=== PATIENT | male | born 1950 | race Caucasian/White ===

== ENCOUNTER 2018-09-02 05:01 | Inpatient (IN) | payer MEDICARE, OTHER ==
[2018-08-30 13:29] LABS: BASOPHILS % (AUTO) 0.4 % (0-1); EOSINOPHILS # (AUTO) 0.1 X10'3 (0-0.9); EOSINOPHILS % (AUTO) 2.6 % (0-6); LYMPHOCYTES # (AUTO) 1.2 X10'3 (1.1-4.8); LYMPHOCYTES % (AUTO) 26.8 % (21-51); MEAN CORPUSCULAR HEMOGLOBIN 31.4 PG (27.0-31.0); MEAN CORPUSCULAR HGB CONC 33.9 % (33.0-36.5); MEAN CORPUSCULAR VOLUME 92.7 FL (78-98); MEAN PLATELET VOLUME 7.3 FL (7.4-10.4); MONOCYTES # (AUTO) 0.3 X10'3 (0-0.9); MONOCYTES % (AUTO) 6.1 % (2-12); NEUTROPHILS % (AUTO) 64.1 % (42-75); PRE OP HEMATOCRIT 39.8 % (42.0-52.0); PRE OP HEMOGLOBIN 13.5 g/dL (14.0-17.9); PRE OP PLATELET COUNT 156 X10'3 (140-440); RED CELL DISTRIBUTION WIDTH 13.4 % (11.5-14.5)
[2018-08-30 13:35] LABS: CLARITY,URINE CLEAR (Clear); COLOR,URINE YELLOW (Yellow); GLUCOSE, URINE NEGATIVE (Neg); KETONES,URINE NEGATIVE (Neg); NITRITES, URINE NEGATIVE (Neg); OCCULT BLOOD,URINE NEGATIVE (Neg); PROTEIN,URINE NEGATIVE (Neg); UA COLLECTION TYPE CLN CATCH MIDSTREAM
[2018-08-30 13:36] LABS: LEUKOCYTE ESTERASE ,URINE NEGATIVE (Neg); UROBILINOGEN,URINE 0.2 E.U/dL (0.2-1.0)
[2018-08-30 13:40] LABS: HEMOGLOBIN A1C 7.7 % (4.5-6.2)
[2018-08-30 13:44] LABS: ALBUMIN 3.3 G/DL (3.4-5.0); ALKALINE PHOSPHATASE 74 IU/L (46-116); BLOOD UREA NITROGEN 17 MG/DL (7-18); BUN/CREATININE RATIO 14.3 (5.4-32.0); CALCIUM 8.6 MG/DL (8.5-10.1); CHLORIDE 105 MMOL/L (99-107); CREATININE 1.19 MG/DL (0.60-1.10); PRE OP ALT 35 U/L (30-65); PRE OP ANION GAP 10 (8-16); PRE OP AST 16 U/L (10-37); PRE OP BILIRUB, TOTAL 0.3 MG/DL (0.0-1.0); PRE OP GLUCOSE 183 MG/DL (70-104); PRE OP POTASSIUM 4.1 MMOL/L (3.4-5.1); PRE OP SODIUM 141 MMOL/L (135-145); TOTAL CARBON DIOXIDE 26.1 MMOL/L (24-32); TOTAL PROTEIN 6.7 G/DL (6.4-8.2); eGFR 60 ML/MIN
[2018-09-02] VITALS (17 sets, daily range): BP systolic 100–149; BP diastolic 44–67
[~2018-09-02] VITALS: Ht 180.3 cm; Wt 129.0 kg
[~2018-09-02 05:01] MED LIST: ASPI81TA52 PO; ATOR80TA PO; CETI10TA18 PO; CLOP75TA15 PO; GLIP10TA11 PO; LISI10TA4 PO; METF500T PO; dextrose 50%-water 50ml dispensing syringe IV PRN; mupirocin 2% nasal ointment 1gm UD NS SCH; ringers solution, lacted 1,000 ML IV SCH
[2018-09-02] MEDS ORDERED: ceFAZolin inj. 3,000 MG in normal saline 100ml IV soln 100 ML IV ONE (05:30)
[2018-09-02] MEDS ORDERED: famotidine 20mg tablet PO ONE (05:30)
[2018-09-02] MEDS ORDERED: metoprolol tartrate 12.5mg (1/2 tablet) PO ONE (05:30)
[2018-09-02] MEDS ORDERED: vancomycin inj 1,500 MG in normal saline 300ml IV soln IV ONE (05:30)
[2018-09-02] MEDS ORDERED: albuterol 2.5 MG/3 ML nebule NEB ONE (05:30)
[2018-09-02] MEDS ORDERED: LIDOcaine 1% (10mg/ml) 2ml vial ONE (05:48)
[2018-09-02] MEDS ORDERED: LORazepam 2 mg/ml vial IV PRN (06:10)
[2018-09-02] MEDS ORDERED: isoflurane 100ml inhalation liquid IH ONE (06:50)
[2018-09-02] MEDS ORDERED: aminocaproic acid 250 MG/1 ML inj. ONE ×2 (06:50→09:00)
[2018-09-02] MEDS ORDERED: INSULIN R 100 UNIT in NS 100ML (1 UNIT/1 ML) BAG IV ONE (06:50)
[2018-09-02] MEDS ORDERED: protamine sulf. 10mg/ml inj. IV ONE (06:50)
[2018-09-02] MEDS ORDERED: nitroGLYCERIN in D5W 50mg/250ml (Tridil) infusion IV ONE (06:50)
[2018-09-02] MEDS ORDERED: niCARDipine in NS 40mg/200ml (0.2mg/ml) IVPB IV ONE (06:50)
[2018-09-02] MEDS ORDERED: LORazepam 2 mg/ml vial ONE (06:57)
[2018-09-02] MEDS ORDERED: SUFENTANIL CITRATE 50 MCG/ML 2ml ampule IV ONE (06:57)
[2018-09-02] MEDS ORDERED: pancuronium br 1mg/ml inj IV ONE (07:00)
[2018-09-02] MEDS ORDERED: papaverine 30 mg/ml 2ml inj. IA ONE (07:00)
[2018-09-02] MEDS ORDERED: propofol inj 20 ML IV ONE (07:00)
[2018-09-02] MEDS ORDERED: rocuronium 10mg/ml inj IV ONE (07:00)
[2018-09-02] MEDS ORDERED: LIDOcaine 1%/PF 5ML 10 MG/ML VIAL ONE (07:00)
[2018-09-02] MEDS ORDERED: heparin 10,000 units/1 ML INJ IR ONE (07:00)
[2018-09-02] MEDS ORDERED: ipratropium/albuterol 3ml nebule IH PRN (08:20)
[2018-09-02 08:31] LABS: ABG BASE EXCESS -2.6 mmol/L (-2.0-3.0); ABG HCO3 24.1 mmol/L (22.0-26.0); ABG PCO2 48.8 mmHg (35.0-45.0); ABG PH 7.311 (7.350-7.450); ABG PO2 88.5 mmHg (60.0-100.0); CL (ABG) 107 mmol/L (99-107); GLUCOSE (ABG) 123 mg/dl (70-105); IONIZED CA (ABG) 1.19 mmol/L (1.03-1.32); K (ABG) 3.6 mmol/L (3.3-5.1); NA (ABG) 138 mmol/L (135-145)
[2018-09-02 08:50] LABS: ACT @ 1.70 U 323 SEC (193-297); ACT @ 2.84 U 486 SEC (260-420); BASELINE ACT 157 SEC (101-148)
[2018-09-02] MEDS ORDERED: magnesium sulf 1 GM/2 ML ONE (09:00)
[2018-09-02] MEDS ORDERED: methylPREDNISolone sod succ 1000mg vial ONE (09:00)
[2018-09-02] MEDS ORDERED: papaverine 30 mg/ml 2ml inj. ONE (09:00)
[2018-09-02] MEDS ORDERED: calcium chloride 100 MG/1 ML inj IV ONE (09:00)
[2018-09-02] MEDS ORDERED: LIDOcaine 2% (20 mg/ml) 5ml cardiac syringe ONE (09:00)
[2018-09-02] MEDS ORDERED: phenylephrine 10mg/ml inj. ONE (09:00)
[2018-09-02] MEDS ORDERED: sodium bicarbonate (8.4%) 1 mEq/ml syringe ONE (09:00)
[2018-09-02] MEDS ORDERED: potassium Cl 2 mEq/ml inj IV ONE (09:00)
[2018-09-02] MEDS ORDERED: heparin 10,000 units/1 ML INJ ONE ×2 (09:00)
[2018-09-02] MEDS ORDERED: heparin 1,000 units/ml 10ml inj ONE (09:00)
[2018-09-02] MEDS ORDERED: albumin (human) 25% 100 ML IV solution IV ONE (09:00)
[2018-09-02 09:06] LABS: ABG BASE EXCESS -4.6 mmol/L (-2.0-3.0); ABG HCO3 20.7 mmol/L (22.0-26.0); ABG OXYGEN SATURATION 94.3 % (95-98); ABG PCO2 39.4 mmHg (35.0-45.0); ABG PH 7.339 (7.350-7.450); ABG PO2 74.4 mmHg (60.0-100.0); CL (ABG) 107 mmol/L (99-107); FCOHb 0.7 % (0.5-1.5); FMetHb 0.1 % (0.3-1.12); FO2Hb 93.5 % (94-100); GLUCOSE (ABG) 130 mg/dl (70-105); IONIZED CA (ABG) 1.16 mmol/L (1.03-1.32); K (ABG) 3.7 mmol/L (3.3-5.1); NA (ABG) 137 mmol/L (135-145); TOTAL HEMOGLOBIN 12.2 G/dl (14.0-18.0)
[2018-09-02 09:36] LABS: ABG BASE EXCESS 0.1 mmol/L (-2.0-3.0); ABG HCO3 25.4 mmol/L (22.0-26.0); ABG OXYGEN SATURATION 99.1 % (95-98); ABG PCO2 44.5 mmHg (35.0-45.0); ABG PH 7.375 (7.350-7.450); ABG PO2 350.4 mmHg (60.0-100.0); CL (ABG) 105 mmol/L (99-107); FCOHb 0.3 % (0.5-1.5); FMetHb 0.3 % (0.3-1.12); FO2Hb 98.5 % (94-100); GLUCOSE (ABG) 137 mg/dl (70-105); IONIZED CA (ABG) 1.08 mmol/L (1.03-1.32); NA (ABG) 136 mmol/L (135-145); TOTAL HEMOGLOBIN 9.9 G/dl (14.0-18.0)
[2018-09-02 09:55] LABS: ABG HCO3 VENOUS 23.8 mmol/L; ABG PCO2 VENOUS 45.1 mmHg; ABG PO2 VENOUS 50.6 mmHg; CL (ABG) 105 mmol/L (99-107); FCOHb VENOUS 0.1 %; FHHb VENOUS 15.8 %; FO2Hb VENOUS 84.1 %; GLUCOSE (ABG) 140 mg/dl (70-105); K (ABG) 3.6 mmol/L (3.3-5.1); NA (ABG) 137 mmol/L (135-145); TOTAL HEMOGLOBIN 10.1 G/dl (14.0-18.0)
[2018-09-02 10:35] LABS: ABG BASE EXCESS -2.5 mmol/L (-2.0-3.0); ABG HCO3 23.1 mmol/L (22.0-26.0); ABG OXYGEN SATURATION 99.2 % (95-98); ABG PH 7.348 (7.350-7.450); ABG PO2 319.2 mmHg (60.0-100.0); CL (ABG) 108 mmol/L (99-107); FCOHb 0.3 % (0.5-1.5); FMetHb 0.2 % (0.3-1.12); FO2Hb 98.7 % (94-100); GLUCOSE (ABG) 147 mg/dl (70-105); K (ABG) 4.6 mmol/L (3.3-5.1); NA (ABG) 137 mmol/L (135-145); TOTAL HEMOGLOBIN 10.2 G/dl (14.0-18.0)
[2018-09-02 11:36] LABS: ABG BASE EXCESS -3.7 mmol/L (-2.0-3.0); ABG HCO3 21.1 mmol/L (22.0-26.0); ABG OXYGEN SATURATION 96.4 % (95-98); ABG PCO2 37.4 mmHg (35.0-45.0); ABG PO2 91.8 mmHg (60.0-100.0); CL (ABG) 107 mmol/L (99-107); FCOHb 0.3 % (0.5-1.5); FMetHb 0.1 % (0.3-1.12); GLUCOSE (ABG) 128 mg/dl (70-105); IONIZED CA (ABG) 1.23 mmol/L (1.03-1.32); K (ABG) 3.7 mmol/L (3.3-5.1); NA (ABG) 137 mmol/L (135-145); TOTAL HEMOGLOBIN 10.6 G/dl (14.0-18.0)
[2018-09-02] MEDS: sodium chloride 0.45% 1,000 ML IV SCH (12:07)
[2018-09-02] MEDS ORDERED: DOPamine 400mg/D5W 250ml 250 ML IV PRN (12:07)
[2018-09-02] MEDS ORDERED: nitroGLYCERIN-Tridil 50MG/D5W 250 ML IV PRN (12:07)
[2018-09-02] MEDS ORDERED: niCARDipine-NS 40mg/200ml IVPB 200 ML IV PRN (12:07)
[2018-09-02] MEDS ORDERED: normal saline 250ml IV soln 250 ML IV PRN (12:10)
[2018-09-02] MEDS ORDERED: HYDROcodone/acetaminophen 10/325mg tab PO PRN (12:10)
[2018-09-02] MEDS ORDERED: albumin (Human) 5% 250ml 250 ML IV PRN (12:10)
[2018-09-02] MEDS ORDERED: acetaminophen 325mg tablet PO PRN (12:10)
[2018-09-02] MEDS ORDERED: magnesium 4gm in 100ml NS 100 ML IV PRN (12:10)
[2018-09-02] MEDS ORDERED: sodium phosphate inj. 15 MMOL in dextrose 5%-water 150 ML IV PRN (12:10)
[2018-09-02] MEDS ORDERED: sodium phosphate inj. 30 MMOL in dextrose 5%-water 250 ML IV PRN (12:10)
[2018-09-02] MEDS ORDERED: ondansetron/PF 4mg/2ml inj IV PRN (12:10)
[2018-09-02] MEDS ORDERED: morphine 4 MG/ML inj SYRINge IV PRN (12:10)
[2018-09-02] MEDS ORDERED: Neutra Phos packet PO PRN (12:10)
[2018-09-02] MEDS ORDERED: metoclopramide 5 mg/ml inj IV PRN (12:10)
[2018-09-02] MEDS ORDERED: dextrose 50%-water 50ml dispensing syringe IV PRN (12:10)
[2018-09-02] MEDS ORDERED: potassium Cl 20mEq/100mL bag 100 ML IV PRN ×2 (12:10)
[2018-09-02] MEDS ORDERED: magnesium hydroxide 30ml (MOM) UD suspension PO PRN (12:10)
[2018-09-02] MEDS ORDERED: insulin regular, human inj. 100 UNITS in normal saline 100ml IV soln 100 ML IV SCH ×2 (12:10)
[2018-09-02] MEDS ORDERED: pantoprazole 40 MG vial IV ONE (12:10)
[2018-09-02] MEDS: morphine 4 MG/ML inj SYRINge IV PRN ×2 (12:30→22:04)
[2018-09-02 12:36] LABS: ABG BASE EXCESS -1.9 mmol/L (-2.0-3.0); ABG HCO3 22.8 mmol/L (22.0-26.0); ABG OXYGEN SATURATION 97.2 % (95-98); ABG PCO2 (T) 37.3 mmHg (35.0-48.0); ABG PO2 (T) 96.1 mmHg (83-108); FCOHb 0.3 % (0.5-1.5); FMetHb 0.2 % (0.3-1.12); FO2Hb 96.7 % (94-100); MINUTE VOLUME 11 L/min; PATIENT TEMPERATURE 36.3; PEEP 10 cm H2O; RESPIRATORY RATE 14 b/min; RESPIRATORY RATE (OBSERVED) 14 b/min; TIDAL VOLUME 750 mL; TOTAL HEMOGLOBIN 12.1 G/dl (14.0-18.0)
[2018-09-02 12:36] LABS: ACTIVATED CLOTTING TIME 134 SEC (101-148)
[2018-09-02 12:38] LABS: BASOPHILS % (AUTO) 0.2 % (0-1); EOSINOPHILS # (AUTO) 0.1 X10'3 (0-0.9); EOSINOPHILS % (AUTO) 1.4 % (0-6); HEMATOCRIT 33.5 % (42.0-52.0); HEMOGLOBIN 11.3 g/dl (14.0-17.9); LYMPHOCYTES # (AUTO) 0.8 X10'3 (1.1-4.8); LYMPHOCYTES % (AUTO) 10.5 % (21-51); MEAN CORPUSCULAR HEMOGLOBIN 31.3 PG (27.0-31.0); MEAN CORPUSCULAR HGB CONC 33.7 % (33.0-36.5); MEAN CORPUSCULAR VOLUME 92.7 FL (78-98); MEAN PLATELET VOLUME 7.2 FL (7.4-10.4); MONOCYTES # (AUTO) 0.3 X10'3 (0-0.9); MONOCYTES % (AUTO) 3.8 % (2-12); NEUTROPHILS # (AUTO) 6.6 X10'3 (1.8-7.7); NEUTROPHILS % (AUTO) 84.1 % (42-75); PLATELET COUNT 115 X10'3 (140-440); RED BLOOD COUNT 3.61 X10'6 (4.70-6.10); RED CELL DISTRIBUTION WIDTH 13.5 % (11.5-14.5); WHITE BLOOD COUNT 7.9 X10'3 (4.5-11.0)
[2018-09-02 12:57] LABS: ALANINE AMINOTRANSFERASE 27 U/L (12-78); ALBUMIN 2.8 G/DL (3.4-5.0); ALBUMIN/GLOBULIN RATIO 1.1 (1.1-1.5); ALKALINE PHOSPHATASE 55 IU/L (46-116); ANION GAP 14 (8-16); ASPARTATE AMINO TRANSFERASE 32 U/L (10-37); BILIRUBIN,TOTAL 0.4 MG/DL (0.1-1.0); BLOOD UREA NITROGEN 19 MG/DL (7-18); BUN/CREATININE RATIO 13.7 (5.4-32.0); CALCIUM 8.9 MG/DL (8.5-10.1); CHLORIDE 108 MMOL/L (99-107); CREATININE 1.39 MG/DL (0.60-1.10); GLUCOSE 130 MG/DL (70-104); MAGNESIUM 2.7 MG/DL (1.5-2.4); PHOSPHORUS 2.1 MG/DL (2.3-4.5); POTASSIUM 3.7 MMOL/L (3.5-5.1); SODIUM 144 MMOL/L (135-145); TOTAL CARBON DIOXIDE 22.5 MMOL/L (24-32); TOTAL PROTEIN 5.4 G/DL (6.4-8.2); eGFR 51 ML/MIN
[2018-09-02] MEDS: insulin Lispro (HumaLOG) vial - multi-dose SQ SCH ×2 (13:00→18:00)
[2018-09-02] MEDS ORDERED: potassium phosphate inj 15 MMOL in normal saline 250ml IV soln 245 ML IV ONE (13:30)
[2018-09-02 13:38] LABS: INR 1.1 INR; PARTIAL THROMBOPLASTIN TIME 25 SECONDS (22-32); PROTHROMBIN TIME 11.3 SECONDS (9.0-12.0)
[2018-09-02] MEDS: potassium Cl 20mEq/100mL bag 100 ML IV PRN (13:41)
[2018-09-02 16:06] LABS: ABG BASE EXCESS -5.9 mmol/L (-2.0-3.0); ABG HCO3 20.6 mmol/L (22.0-26.0); ABG OXYGEN SATURATION 97.3 % (95-98); ABG PCO2 (T) 42.3 mmHg (35.0-48.0); ABG PH (T) 7.301 (7.350-7.450); FCOHb 0.1 % (0.5-1.5); FMetHb 0.2 % (0.3-1.12); MINUTE VOLUME 11 L/min; PATIENT TEMPERATURE 36.1; PEEP 5 cm H2O; TOTAL HEMOGLOBIN 12.9 G/dl (14.0-18.0)
[2018-09-02] MEDS: cefazolin/dext.iso 2gm/50ml 50 ML IV SCH (16:47)
[2018-09-02 17:15] LABS: ABG BASE EXCESS -4.5 mmol/L (-2.0-3.0); ABG HCO3 20.2 mmol/L (22.0-26.0); ABG PCO2 (T) 34.7 mmHg (35.0-48.0); ABG PH (T) 7.379 (7.350-7.450); ABG PO2 (T) 84.1 mmHg (83-108); FCOHb 0.3 % (0.5-1.5); FMetHb 0.1 % (0.3-1.12); FO2Hb 95.6 % (94-100); MINUTE VOLUME 12 L/min; PATIENT TEMPERATURE 36.1; PEEP 5 cm H2O; RESPIRATORY RATE (OBSERVED) 19 b/min; TOTAL HEMOGLOBIN 12.3 G/dl (14.0-18.0)
[2018-09-02 18:40] LABS: BASOPHILS % (AUTO) 0.1 % (0-1); EOSINOPHILS % (AUTO) 0.5 % (0-6); HEMATOCRIT 34.9 % (42.0-52.0); HEMOGLOBIN 11.5 g/dl (14.0-17.9); LYMPHOCYTES # (AUTO) 0.3 X10'3 (1.1-4.8); LYMPHOCYTES % (AUTO) 3.6 % (21-51); MEAN CORPUSCULAR HEMOGLOBIN 30.6 PG (27.0-31.0); MEAN CORPUSCULAR VOLUME 92.7 FL (78-98); MEAN PLATELET VOLUME 7.5 FL (7.4-10.4); MONOCYTES # (AUTO) 0.1 X10'3 (0-0.9); MONOCYTES % (AUTO) 1.3 % (2-12); NEUTROPHILS # (AUTO) 7.6 X10'3 (1.8-7.7); NEUTROPHILS % (AUTO) 94.5 % (42-75); PLATELET COUNT 114 X10'3 (140-440); RED BLOOD COUNT 3.76 X10'6 (4.70-6.10); RED CELL DISTRIBUTION WIDTH 13.8 % (11.5-14.5); WHITE BLOOD COUNT 8.1 X10'3 (4.5-11.0)
[2018-09-02 18:55] LABS: ALBUMIN 3.2 G/DL (3.4-5.0); ANION GAP 12 (8-16); BLOOD UREA NITROGEN 21 MG/DL (7-18); BUN/CREATININE RATIO 13.8 (5.4-32.0); CALCIUM 8.9 MG/DL (8.5-10.1); CHLORIDE 110 MMOL/L (99-107); CREATININE 1.52 MG/DL (0.60-1.10); GLUCOSE 143 MG/DL (70-104); MAGNESIUM 2.4 MG/DL (1.5-2.4); PHOSPHORUS 3.5 MG/DL (2.3-4.5); POTASSIUM 4.4 MMOL/L (3.5-5.1); SODIUM 144 MMOL/L (135-145); TOTAL CARBON DIOXIDE 22.1 MMOL/L (24-32); eGFR 46 ML/MIN
[2018-09-02] MEDS: vancomycin/NS 1 GM ADD-VANTAGE 250 ML IV SCH (19:48)
[2018-09-02] MEDS: docusate sod 100mg capsule PO SCH (19:59)
[2018-09-02] MEDS: insulin regular, human 100 UNIT in normal saline 100ml IV soln 99 ML IV SCH ×2 (20:23)
[2018-09-02] MEDS: mupirocin 2% ointment 22GM NS SCH (20:59)
[2018-09-03] VITALS (23 sets, daily range): BP systolic 102–158; BP diastolic 46–86
[2018-09-03] MEDS: potassium Cl 20mEq/100mL bag 100 ML IV PRN (00:05)
[2018-09-03] MEDS: cefazolin/dext.iso 2gm/50ml 50 ML IV SCH ×3 (01:04→16:07)
[2018-09-03 03:51] LABS: BASOPHILS % (AUTO) 0.1 % (0-1); EOSINOPHILS % (AUTO) 0.2 % (0-6); HEMATOCRIT 30.9 % (42.0-52.0); HEMOGLOBIN 10.4 g/dl (14.0-17.9); LYMPHOCYTES # (AUTO) 0.6 X10'3 (1.1-4.8); LYMPHOCYTES % (AUTO) 6.5 % (21-51); MEAN CORPUSCULAR HEMOGLOBIN 31.3 PG (27.0-31.0); MEAN CORPUSCULAR HGB CONC 33.6 % (33.0-36.5); MEAN CORPUSCULAR VOLUME 93.2 FL (78-98); MEAN PLATELET VOLUME 7.9 FL (7.4-10.4); MONOCYTES # (AUTO) 0.2 X10'3 (0-0.9); MONOCYTES % (AUTO) 2.2 % (2-12); NEUTROPHILS # (AUTO) 8.8 X10'3 (1.8-7.7); PLATELET COUNT 105 X10'3 (140-440); RED BLOOD COUNT 3.32 X10'6 (4.70-6.10); RED CELL DISTRIBUTION WIDTH 13.5 % (11.5-14.5); WHITE BLOOD COUNT 9.7 X10'3 (4.5-11.0)
[2018-09-03 04:08] LABS: PARTIAL THROMBOPLASTIN TIME 25 SECONDS (22-32)
[2018-09-03 04:09] LABS: ALANINE AMINOTRANSFERASE 26 U/L (12-78); ALBUMIN 2.9 G/DL (3.4-5.0); ALBUMIN/GLOBULIN RATIO 1.1 (1.1-1.5); ALKALINE PHOSPHATASE 50 IU/L (46-116); ANION GAP 10 (8-16); ASPARTATE AMINO TRANSFERASE 45 U/L (10-37); BILIRUBIN,TOTAL 0.3 MG/DL (0.1-1.0); BLOOD UREA NITROGEN 23 MG/DL (7-18); BUN/CREATININE RATIO 16.3 (5.4-32.0); CALCIUM 8.2 MG/DL (8.5-10.1); CHLORIDE 109 MMOL/L (99-107); CREATININE 1.41 MG/DL (0.60-1.10); GLUCOSE 170 MG/DL (70-104); MAGNESIUM 2.1 MG/DL (1.5-2.4); PHOSPHORUS 3.5 MG/DL (2.3-4.5); SODIUM 142 MMOL/L (135-145); TOTAL PROTEIN 5.5 G/DL (6.4-8.2); eGFR 50 ML/MIN
[2018-09-03] MEDS: insulin regular, human 100 UNIT in normal saline 100ml IV soln 99 ML IV SCH ×2 (04:22)
[2018-09-03] MEDS: magnesium 2GM in 50ml NS 50 ML IV PRN (04:22)
[2018-09-03] MEDS: HYDROcodone/acetaminophen 10/325mg tab PO PRN (04:31)
[2018-09-03] MEDS: cetirizine 10mg tablet PO SCH (07:58)
[2018-09-03] MEDS: docusate sod 100mg capsule PO SCH ×2 (07:59→19:50)
[2018-09-03] MEDS: atorvastatin 10mg tablet PO SCH (07:59)
[2018-09-03] MEDS: vancomycin/NS 1 GM ADD-VANTAGE 250 ML IV SCH ×2 (07:59→19:50)
[2018-09-03] MEDS: metoprolol tartrate 12.5mg (1/2 tablet) PO SCH ×2 (07:59→19:50)
[2018-09-03] MEDS: aspirin 325mg tablet, delayed-release (Ecotrin) PO SCH (08:00)
[2018-09-03] MEDS: mupirocin 2% ointment 22GM NS SCH ×2 (08:00→19:50)
[2018-09-03] MEDS: insulin Lispro (HumaLOG) vial - multi-dose SQ SCH ×4 (08:35→22:37)
[2018-09-03] MEDS: lisinopril 5mg tablet PO SCH (10:38)
[2018-09-03] MEDS ORDERED: dextrose ORAL solution 15 GM/59 ML bottle PO PRN ×2 (13:10)
[2018-09-03] MEDS ORDERED: glucagon, human recombinant 1mg kit SUBCUT PRN (13:10)
[2018-09-03] MEDS ORDERED: dextrose 50%-water 50ml dispensing syringe IV PRN ×2 (13:10)
[2018-09-03] MEDS ORDERED: MESSAGE TO PHARMACY PO ONE (13:10)
[2018-09-03] MEDS: insulin glargine (Lantus) pen - multi-dose SQ SCH (13:46)
[2018-09-04] VITALS (24 sets, daily range): BP systolic 105–156; BP diastolic 47–75
[2018-09-04] MEDS: cefazolin/dext.iso 2gm/50ml 50 ML IV SCH (00:18)
[2018-09-04 04:02] LABS: BASOPHILS % (AUTO) 0.4 % (0-1); EOSINOPHILS # (AUTO) 0.1 X10'3 (0-0.9); EOSINOPHILS % (AUTO) 0.7 % (0-6); HEMATOCRIT 32.1 % (42.0-52.0); HEMOGLOBIN 10.7 g/dl (14.0-17.9); LYMPHOCYTES % (AUTO) 9.5 % (21-51); MEAN CORPUSCULAR HEMOGLOBIN 31.3 PG (27.0-31.0); MEAN CORPUSCULAR HGB CONC 33.3 % (33.0-36.5); MEAN PLATELET VOLUME 8.3 FL (7.4-10.4); MONOCYTES # (AUTO) 0.6 X10'3 (0-0.9); MONOCYTES % (AUTO) 5.4 % (2-12); NEUTROPHILS # (AUTO) 8.9 X10'3 (1.8-7.7); PLATELET COUNT 110 X10'3 (140-440); RED BLOOD COUNT 3.42 X10'6 (4.70-6.10); RED CELL DISTRIBUTION WIDTH 13.9 % (11.5-14.5); WHITE BLOOD COUNT 10.6 X10'3 (4.5-11.0)
[2018-09-04 04:17] LABS: ALBUMIN 2.9 G/DL (3.4-5.0); ANION GAP 8 (8-16); BLOOD UREA NITROGEN 25 MG/DL (7-18); BUN/CREATININE RATIO 19.4 (5.4-32.0); CALCIUM 8.2 MG/DL (8.5-10.1); CHLORIDE 108 MMOL/L (99-107); CREATININE 1.29 MG/DL (0.60-1.10); GLUCOSE 222 MG/DL (70-104); MAGNESIUM 2.3 MG/DL (1.5-2.4); PHOSPHORUS 3.3 MG/DL (2.3-4.5); POTASSIUM 4.8 MMOL/L (3.5-5.1); SODIUM 141 MMOL/L (135-145); TOTAL CARBON DIOXIDE 25.5 MMOL/L (24-32); eGFR 55 ML/MIN
[2018-09-04] MEDS: magnesium 2GM in 50ml NS 50 ML IV PRN (05:12)
[2018-09-04] MEDS: HYDROcodone/acetaminophen 10/325mg tab PO PRN ×2 (05:34→09:40)
[2018-09-04] MEDS: lisinopril 5mg tablet PO SCH (07:09)
[2018-09-04] MEDS: aspirin 325mg tablet, delayed-release (Ecotrin) PO SCH (07:09)
[2018-09-04] MEDS: pantoprazole 40mg Tablet.DR PO SCH (07:09)
[2018-09-04] MEDS: cetirizine 10mg tablet PO SCH (07:09)
[2018-09-04] MEDS: docusate sod 100mg capsule PO SCH ×2 (07:09→19:50)
[2018-09-04] MEDS: atorvastatin 10mg tablet PO SCH (07:09)
[2018-09-04] MEDS: mupirocin 2% ointment 22GM NS SCH (07:10)
[2018-09-04] MEDS: insulin glargine (Lantus) pen - multi-dose SQ SCH (08:34)
[2018-09-04] MEDS: insulin Lispro (HumaLOG) vial - multi-dose SQ SCH ×3 (08:34→19:50)
[2018-09-04] MEDS: metoprolol tartrate 12.5mg (1/2 tablet) PO SCH ×2 (09:40→19:50)
[2018-09-04] MEDS: sodium chloride 0.45% 1,000 ML IV SCH (12:07)
[2018-09-04] MEDS ORDERED: insulin glargine (Lantus) pen - multi-dose SQ SCH (14:00)
[2018-09-04] MEDS: lisinopril 10 MG tablet PO SCH (21:04)
[2018-09-05] VITALS (18 sets, daily range): BP systolic 105–132; BP diastolic 45–74
[2018-09-05] MEDS: HYDROcodone/acetaminophen 10/325mg tab PO PRN ×2 (01:54→21:03)
[2018-09-05 04:44] LABS: BASOPHILS % (AUTO) 0.2 % (0-1); EOSINOPHILS # (AUTO) 0.1 X10'3 (0-0.9); HEMATOCRIT 31.8 % (42.0-52.0); HEMOGLOBIN 10.5 g/dl (14.0-17.9); LYMPHOCYTES # (AUTO) 1.5 X10'3 (1.1-4.8); LYMPHOCYTES % (AUTO) 19.1 % (21-51); MEAN CORPUSCULAR VOLUME 94.2 FL (78-98); MEAN PLATELET VOLUME 8.1 FL (7.4-10.4); MONOCYTES # (AUTO) 0.6 X10'3 (0-0.9); MONOCYTES % (AUTO) 7.3 % (2-12); NEUTROPHILS # (AUTO) 5.6 X10'3 (1.8-7.7); NEUTROPHILS % (AUTO) 72.4 % (42-75); PLATELET COUNT 112 X10'3 (140-440); RED BLOOD COUNT 3.38 X10'6 (4.70-6.10); RED CELL DISTRIBUTION WIDTH 14.5 % (11.5-14.5); WHITE BLOOD COUNT 7.7 X10'3 (4.5-11.0)
[2018-09-05 05:04] LABS: ALBUMIN 2.6 G/DL (3.4-5.0); ANION GAP 7 (8-16); BLOOD UREA NITROGEN 25 MG/DL (7-18); BUN/CREATININE RATIO 22.5 (5.4-32.0); CHLORIDE 109 MMOL/L (99-107); CREATININE 1.11 MG/DL (0.60-1.10); GLUCOSE 94 MG/DL (70-104); MAGNESIUM 2.2 MG/DL (1.5-2.4); PHOSPHORUS 3.6 MG/DL (2.3-4.5); SODIUM 143 MMOL/L (135-145); TOTAL CARBON DIOXIDE 27.1 MMOL/L (24-32); eGFR 65 ML/MIN
[2018-09-05] MEDS: magnesium 2GM in 50ml NS 50 ML IV PRN (05:30)
[2018-09-05] MEDS: docusate sod 100mg capsule PO SCH ×2 (08:26→20:00)
[2018-09-05] MEDS: pantoprazole 40mg Tablet.DR PO SCH (08:26)
[2018-09-05] MEDS: aspirin 81mg tablet.DR PO SCH (08:26)
[2018-09-05] MEDS: metoprolol tartrate 12.5mg (1/2 tablet) PO SCH ×2 (08:26→21:04)
[2018-09-05] MEDS: cetirizine 10mg tablet PO SCH (08:26)
[2018-09-05] MEDS: insulin glargine (Lantus) pen - multi-dose SQ SCH ×2 (08:30→21:56)
[2018-09-05] MEDS: insulin Lispro (HumaLOG) vial - multi-dose SQ SCH ×3 (08:34→19:42)
[2018-09-05] MEDS ORDERED: potassium Cl 20 mEq SR tablet PO PRN ×2 (08:40)
[2018-09-05] MEDS ORDERED: magnesium 4gm in 100ml NS 100 ML IV PRN (08:40)
[2018-09-05] MEDS ORDERED: magnesium Cl slow-release 64mg tablet PO PRN (08:40)
[2018-09-05] MEDS ORDERED: potassium Cl 40MEQ/NS 500ml 500 ML IV PRN ×2 (08:40)
[2018-09-05] MEDS: magnesium Cl slow-release 64mg tablet PO SCH (20:00)
[2018-09-05] MEDS: potassium Cl 20 mEq SR tablet PO SCH (20:00)
[2018-09-05] MEDS: lisinopril 10 MG tablet PO SCH (21:03)
[2018-09-06 02:00] VITALS: BP 94/55
[2018-09-06 06:21] LABS: BASOPHILS % (AUTO) 0.3 % (0-1); EOSINOPHILS % (AUTO) 0.7 % (0-6); HEMATOCRIT 32.9 % (42.0-52.0); HEMOGLOBIN 10.9 g/dl (14.0-17.9); LYMPHOCYTES # (AUTO) 1.4 X10'3 (1.1-4.8); LYMPHOCYTES % (AUTO) 21.8 % (21-51); MEAN CORPUSCULAR HEMOGLOBIN 31.3 PG (27.0-31.0); MEAN CORPUSCULAR HGB CONC 33.3 % (33.0-36.5); MEAN CORPUSCULAR VOLUME 94.1 FL (78-98); MEAN PLATELET VOLUME 7.4 FL (7.4-10.4); MONOCYTES # (AUTO) 0.3 X10'3 (0-0.9); MONOCYTES % (AUTO) 5.2 % (2-12); NEUTROPHILS # (AUTO) 4.8 X10'3 (1.8-7.7); PLATELET COUNT 133 X10'3 (140-440); RED CELL DISTRIBUTION WIDTH 14.2 % (11.5-14.5); WHITE BLOOD COUNT 6.6 X10'3 (4.5-11.0)
[2018-09-06 06:56] LABS: ALBUMIN 2.6 G/DL (3.4-5.0); ANION GAP 7 (8-16); BLOOD UREA NITROGEN 26 MG/DL (7-18); CHLORIDE 108 MMOL/L (99-107); GLUCOSE 87 MG/DL (70-104); MAGNESIUM 2.1 MG/DL (1.5-2.4); POTASSIUM 3.9 MMOL/L (3.5-5.1); SODIUM 143 MMOL/L (135-145); eGFR 55 ML/MIN
[2018-09-06 07:00] VITALS: BP 103/50
[2018-09-06] MEDS: pantoprazole 40mg Tablet.DR PO SCH (07:30)
[2018-09-06 08:00] VITALS: BP_SYST 103
[2018-09-06] MEDS ORDERED: K and/or MAG REPLACEMENT MC SCH (08:00)
[2018-09-06] MEDS: magnesium Cl slow-release 64mg tablet PO SCH (08:00)
[2018-09-06] MEDS: potassium Cl 20 mEq SR tablet PO SCH (08:00)
[2018-09-06] MEDS ORDERED: atorvastatin 20mg tablet PO SCH (08:00)
[2018-09-06] MEDS: metoprolol tartrate 12.5mg (1/2 tablet) PO SCH (08:00)
[2018-09-06] MEDS: aspirin 81mg tablet.DR PO SCH (09:26)
[2018-09-06] MEDS: HYDROcodone/acetaminophen 10/325mg tab PO PRN (09:27)
[2018-09-06] MEDS: cetirizine 10mg tablet PO SCH (09:27)
[2018-09-06] MEDS: docusate sod 100mg capsule PO SCH (09:28)
[2018-09-06] MEDS: insulin Lispro (HumaLOG) vial - multi-dose SQ SCH (13:51)
== END 2018-09-06 14:45 | DRG 236 ==
LOC: PAS IN 05:01 → EDSTATUS 07:30 → ICU 2S 12:06 → MED 3N 09-05 14:25
PROVIDERS: ADMIT Thoracic Surgery (Cardiothoracic Vascular Surgery); ATTEND Thoracic Surgery (Cardiothoracic Vascular Surgery)
PROC: 021309W Bypass Coronary Artery, Four or More Arteries from Aorta with Autologous Venous Tissue, Open Approach (ICD-10-PCS; 2018-09-02)
PROC: 06BQ4ZZ Excision of Left Saphenous Vein, Percutaneous Endoscopic Approach (ICD-10-PCS; 2018-09-02)
PROC: 5A1221Z Performance of Cardiac Output, Continuous (ICD-10-PCS; 2018-09-02)
PROC: B24BZZ4 Ultrasonography of Heart with Aorta, Transesophageal (ICD-10-PCS; 2018-09-02)
PROC: 02HV33Z Insertion of Infusion Device into Superior Vena Cava, Percutaneous Approach (ICD-10-PCS; 2018-09-02)
PROC: 4A133B3 Monitoring of Arterial Pressure, Pulmonary, Percutaneous Approach (ICD-10-PCS; 2018-09-02)
PROC: 02HP32Z Insertion of Monitoring Device into Pulmonary Trunk, Percutaneous Approach (ICD-10-PCS; 2018-09-02)
PROC: 5A09357 Assistance with Respiratory Ventilation, Less than 24 Consecutive Hours, Continuous Positive Airway Pressure (ICD-10-PCS; 2018-09-02)
PROC: B548ZZA Ultrasonography of Superior Vena Cava, Guidance (ICD-10-PCS; 2018-09-02)
PROC: 02100Z9 Bypass Coronary Artery, One Artery from Left Internal Mammary, Open Approach (ICD-10-PCS; principal; 2018-09-02 06:50)
PROC: 5A09357 Assistance with Respiratory Ventilation, Less than 24 Consecutive Hours, Continuous Positive Airway Pressure (ICD-10-PCS; 2018-09-03)
PROC: 5A09357 Assistance with Respiratory Ventilation, Less than 24 Consecutive Hours, Continuous Positive Airway Pressure (ICD-10-PCS; 2018-09-04)
PROC: 5A09357 Assistance with Respiratory Ventilation, Less than 24 Consecutive Hours, Continuous Positive Airway Pressure (ICD-10-PCS; 2018-09-05)
DX: I25.110 Atherosclerotic heart disease of native coronary artery with unstable angina pectoris (principal); I50.32 Chronic diastolic (congestive) heart failure; I13.0 Hypertensive heart and chronic kidney disease with heart failure and stage 1 through stage 4 chronic kidney disease, or unspecified chronic kidney disease; N18.3 Chronic kidney disease, stage 3 (moderate); E11.22 Type 2 diabetes mellitus with diabetic chronic kidney disease; E11.319 Type 2 diabetes mellitus with unspecified diabetic retinopathy without macular edema; G47.33 Obstructive sleep apnea (adult) (pediatric); J44.9 Chronic obstructive pulmonary disease, unspecified; E66.01 Morbid (severe) obesity due to excess calories; H53.2 Diplopia; R00.1 Bradycardia, unspecified; F12.90 Cannabis use, unspecified, uncomplicated; I25.2 Old myocardial infarction; Z98.41 Cataract extraction status, right eye; Z95.5 Presence of coronary angioplasty implant and graft; Z90.79 Acquired absence of other genital organ(s); Z79.4 Long term (current) use of insulin; Z79.84 Long term (current) use of oral hypoglycemic drugs; Z79.82 Long term (current) use of aspirin; Z79.01 Long term (current) use of anticoagulants; Z87.891 Personal history of nicotine dependence; Z68.39 Body mass index [BMI] 39.0-39.9, adult
CPT/HCPCS: 0232T; 93312; 93325; 36415; 36600; 71045; 80048; 80053; 81003; 82330; 82435; 82803; 82947; 82948; 83036; 83735; 84100; 84132; 84295; 85018; 85025; 85347; 85384; 85610; 85730; 86885; 86900; 86901; 86920; 87070; 93005; 94002; 94640; 94668; 94760; 97110; 97116; 97161; 97530; A6255; A6258; A6402; A6449; A7000; A7048; C1751; C9113; G0378; J0690; J1644; J1815; J2001; J2060; J2150; J2270; J2370; J2405; J2440; J2704; J2720; J2930; J3370; J3475; J3480; J3490; J7030; J7060; J7120; P9045; P9047

== ENCOUNTER 2019-04-08 17:21 | Emergency (ER) | payer MEDICARE, OTHER ==
[~2019-04-08] VITALS: Ht 180.3 cm; Wt 133.0 kg
[~2019-04-08 17:21] MED LIST changes: -CLOP75TA15 PO; -dextrose 50%-water 50ml dispensing syringe IV PRN; -mupirocin 2% nasal ointment 1gm UD NS SCH; -ringers solution, lacted 1,000 ML IV SCH
[2019-04-08 19:17] LABS: BASOPHILS % (AUTO) 0.7 % (0-1); EOSINOPHILS # (AUTO) 0.1 X10'3 (0-0.9); EOSINOPHILS % (AUTO) 1.6 % (0-6); HEMOGLOBIN 12.5 g/dl (14.0-17.9); LYMPHOCYTES # (AUTO) 1.7 X10'3 (1.1-4.8); LYMPHOCYTES % (AUTO) 27.1 % (21-51); MEAN CORPUSCULAR HEMOGLOBIN 31.5 PG (27.0-31.0); MEAN CORPUSCULAR HGB CONC 33.8 g/dL (33.0-36.5); MEAN CORPUSCULAR VOLUME 93.2 FL (78-98); MEAN PLATELET VOLUME 7.6 FL (7.4-10.4); MONOCYTES # (AUTO) 0.4 X10'3 (0-0.9); MONOCYTES % (AUTO) 5.8 % (2-12); NEUTROPHILS % (AUTO) 64.8 % (42-75); PLATELET COUNT 150 X10'3 (140-440); RED BLOOD COUNT 3.97 X10'6 (4.70-6.10); RED CELL DISTRIBUTION WIDTH 13.5 % (11.5-14.5); WHITE BLOOD COUNT 6.2 X10'3 (4.5-11.0)
[2019-04-08 19:31] LABS: ALANINE AMINOTRANSFERASE 32 U/L (12-78); ALBUMIN 3.4 G/DL (3.4-5.0); ALKALINE PHOSPHATASE 62 IU/L (46-116); ANION GAP 9 (8-16); ASPARTATE AMINO TRANSFERASE 18 U/L (10-37); BILIRUBIN,TOTAL 0.4 MG/DL (0.1-1.0); BLOOD UREA NITROGEN 29 MG/DL (7-18); BUN/CREATININE RATIO 21.6 (5.4-32.0); CALCIUM 8.7 MG/DL (8.5-10.1); CHLORIDE 107 MMOL/L (99-107); CREATININE 1.34 MG/DL (0.60-1.10); GLUCOSE 125 MG/DL (70-104); POTASSIUM 4.3 MMOL/L (3.5-5.1); SODIUM 141 MMOL/L (135-145); TOTAL PROTEIN 6.9 G/DL (6.4-8.2); eGFR 53 ML/MIN
[2019-04-08 21:15] VITALS: BP 136/68
--- NOTE | 2019-04-08 21:39 | NUR ---
pt waiting for vas informed that the will be here soon as belkis rincon called the vasc,daughter at bedside.
[2019-04-08] MEDS ORDERED: SULF1TAB49 PO (23:04)
== END 2019-04-08 23:10 | disposition home or self-care (01) ==
LOC: ER 17:22
DX: M79.605 Pain in left leg (principal); Z79.82 Long term (current) use of aspirin; Z79.84 Long term (current) use of oral hypoglycemic drugs; Z79.899 Other long term (current) drug therapy
CPT/HCPCS: 36415; 80053; 82948; 85025; 85610; 93971; 99284

== ENCOUNTER 2020-03-20 12:42 | Emergency (ER) | payer MEDICARE, OTHER ==
[~2020-03-20] VITALS: Ht 180.3 cm; Wt 120.9 kg
[2020-03-20 14:50] VITALS: BP 120/65
== END 2020-03-20 14:26 | disposition home or self-care (01) ==
LOC: ER 12:43
DX: I95.9 Hypotension, unspecified (principal); I25.10 Atherosclerotic heart disease of native coronary artery without angina pectoris; I50.9 Heart failure, unspecified; I11.0 Hypertensive heart disease with heart failure; I25.2 Old myocardial infarction; Z95.1 Presence of aortocoronary bypass graft; Z79.82 Long term (current) use of aspirin; Z79.899 Other long term (current) drug therapy
CPT/HCPCS: 99284

== ENCOUNTER 2020-09-29 20:10 | Emergency (ER) | payer MEDICARE, OTHER ==
[~2020-09-29] VITALS: Ht 180.3 cm; Wt 140.4 kg
[2020-09-29 22:59] LABS: MEAN CORPUSCULAR VOLUME 94.4 FL (78-98)
[2020-09-29 23:01] LABS: BASOPHILS # (AUTO) 0.1 X10'3 (0-0.2); BASOPHILS % (AUTO) 0.9 % (0-1); EOSINOPHILS # (AUTO) 0.3 X10'3 (0-0.9); EOSINOPHILS % (AUTO) 5.9 % (0-6); HEMATOCRIT 37.3 % (42.0-52.0); HEMOGLOBIN 12.8 g/dl (14.0-17.9); LYMPHOCYTES % (AUTO) 18.4 % (21-51); MEAN CORPUSCULAR HEMOGLOBIN 32.5 PG (27.0-31.0); MEAN CORPUSCULAR HGB CONC 34.4 g/dL (33.0-36.5); MEAN PLATELET VOLUME 7.8 FL (7.4-10.4); MONOCYTES # (AUTO) 0.5 X10'3 (0-0.9); MONOCYTES % (AUTO) 7.9 % (2-12); NEUTROPHILS # (AUTO) 3.8 X10'3 (1.8-7.7); NEUTROPHILS % (AUTO) 66.9 % (42-75); PLATELET COUNT 184 X10'3 (140-440); RED BLOOD COUNT 3.95 X10'6 (4.70-6.10); RED CELL DISTRIBUTION WIDTH 12.9 % (11.5-14.5); WHITE BLOOD COUNT 5.7 X10'3 (4.5-11.0)
[2020-09-29 23:18] LABS: ALANINE AMINOTRANSFERASE 27 U/L (12-78); ALBUMIN 3.3 G/DL (3.4-5.0); ALBUMIN/GLOBULIN RATIO 0.8 (1.1-1.5); ALKALINE PHOSPHATASE 82 IU/L (46-116); ANION GAP 7 (8-16); ASPARTATE AMINO TRANSFERASE 14 U/L (10-37); BILIRUBIN,TOTAL 0.5 MG/DL (0.1-1.0); BLOOD UREA NITROGEN 20 MG/DL (7-18); BUN/CREATININE RATIO 11.6 (5.4-32.0); CALCIUM 8.4 MG/DL (8.5-10.1); CHLORIDE 100 MMOL/L (99-107); CREATININE 1.72 MG/DL (0.60-1.10); GLUCOSE 278 MG/DL (70-104); POTASSIUM 4.7 MMOL/L (3.5-5.1); SODIUM 135 MMOL/L (135-145); TOTAL CARBON DIOXIDE 28.5 MMOL/L (24-32); TOTAL PROTEIN 7.6 G/DL (6.4-8.2); eGFR 39 ML/MIN
[2020-09-29 23:26] LABS: MAGNESIUM 1.8 MG/DL (1.5-2.4)
[2020-09-30] MEDS ORDERED: AZIT250T2 PO (00:35)
[2020-09-30] MEDS ORDERED: ALBU6.7H9 INH (00:35)
[2020-09-30 00:42] VITALS: BP 158/72
[2020-09-30] MEDS: dexamethasone 4mg tablet PO ONE (01:21)
[2020-09-30] MEDS: azithromycin 250mg tablet PO ONE (01:21)
== END 2020-09-30 01:22 | disposition home or self-care (01) ==
LOC: ER 20:10
DX: J02.9 Acute pharyngitis, unspecified (principal); R05 Cough; R06.02 Shortness of breath; Z20.828 Contact with and (suspected) exposure to other viral communicable diseases; I25.10 Atherosclerotic heart disease of native coronary artery without angina pectoris; I11.0 Hypertensive heart disease with heart failure; I50.9 Heart failure, unspecified; I25.2 Old myocardial infarction; J44.9 Chronic obstructive pulmonary disease, unspecified; F17.200 Nicotine dependence, unspecified, uncomplicated; Z98.890 Other specified postprocedural states; Z79.82 Long term (current) use of aspirin; Z79.2 Long term (current) use of antibiotics; Z79.899 Other long term (current) drug therapy
CPT/HCPCS: 36415; 71045; 80053; 83735; 83880; 84145; 84484; 85025; 87635; 93005; 99285; C9803

== ENCOUNTER 2020-10-12 20:43 | Observation (INO) | payer MEDICARE, OTHER ==
[~2020-10-12] VITALS: Ht 180.3 cm; Wt 135.4 kg
[~2020-10-12 20:43] MED LIST changes: +ALOG12.52 PO; +ATRIN IH; +DEC4T PO; +FERR-29 PO; -GLIP10TA11 PO; +INSU100I25 SQ; +LISI10TA27 PO; -LISI10TA4 PO; -METF500T PO; +METO25TA6 PO; +MULT-1074 PO; +NITR0.4T51 SL; +NOVLG SQ
[2020-10-12] MEDS ORDERED: LORazepam 1 MG tablet PO ONE (21:15)
[2020-10-12] MEDS ORDERED: ondansetron/PF 4mg/2ml inj IV ONE ×2 (22:00→22:40)
[2020-10-12] MEDS ORDERED: glucagon, human recombinant 1mg kit IV ONE (22:00)
[2020-10-12] MEDS ORDERED: normal saline 1000ml 1,000 ML IV ONE (22:40)
[2020-10-12 22:58] LABS: BASOPHILS # (AUTO) 0.1 X10'3 (0-0.2); BASOPHILS % (AUTO) 0.7 % (0-1); EOSINOPHILS % (AUTO) 0.2 % (0-6); HEMATOCRIT 42.2 % (42.0-52.0); LYMPHOCYTES # (AUTO) 2.1 X10'3 (1.1-4.8); LYMPHOCYTES % (AUTO) 18.2 % (21-51); MEAN CORPUSCULAR HEMOGLOBIN 31.3 PG (27.0-31.0); MEAN CORPUSCULAR HGB CONC 33.1 g/dL (33.0-36.5); MEAN CORPUSCULAR VOLUME 94.4 FL (78-98); MEAN PLATELET VOLUME 7.3 FL (7.4-10.4); MONOCYTES # (AUTO) 0.6 X10'3 (0-0.9); MONOCYTES % (AUTO) 4.9 % (2-12); NEUTROPHILS # (AUTO) 8.8 X10'3 (1.8-7.7); PLATELET COUNT 258 X10'3 (140-440); RED BLOOD COUNT 4.47 X10'6 (4.70-6.10); RED CELL DISTRIBUTION WIDTH 13.9 % (11.5-14.5); WHITE BLOOD COUNT 11.6 X10'3 (4.5-11.0)
[2020-10-12 23:12] LABS: ALANINE AMINOTRANSFERASE 51 U/L (12-78); ALBUMIN 3.5 G/DL (3.4-5.0); ALBUMIN/GLOBULIN RATIO 0.9 (1.1-1.5); ALKALINE PHOSPHATASE 71 IU/L (46-116); ANION GAP 9 (8-16); ASPARTATE AMINO TRANSFERASE 14 U/L (10-37); BILIRUBIN,TOTAL 0.4 MG/DL (0.1-1.0); BLOOD UREA NITROGEN 34 MG/DL (7-18); BUN/CREATININE RATIO 21.5 (5.4-32.0); CALCIUM 8.9 MG/DL (8.5-10.1); CHLORIDE 104 MMOL/L (99-107); CREATININE 1.58 MG/DL (0.60-1.10); GLUCOSE 252 MG/DL (70-104); POTASSIUM 4.2 MMOL/L (3.5-5.1); SODIUM 139 MMOL/L (135-145); TOTAL CARBON DIOXIDE 25.8 MMOL/L (24-32); TOTAL PROTEIN 7.5 G/DL (6.4-8.2); eGFR 43 ML/MIN
[2020-10-13] MEDS ORDERED: potassium Cl 20 mEq SR tablet PO PRN ×2 (02:45)
[2020-10-13] MEDS ORDERED: ondansetron/PF 4mg/2ml inj IV PRN (02:45)
[2020-10-13] MEDS ORDERED: magnesium Cl slow-release 64mg tablet PO PRN (02:45)
[2020-10-13] MEDS ORDERED: magnesium hydroxide 30ml (MOM) UD suspension PO PRN (02:45)
[2020-10-13] MEDS ORDERED: mag hydrox/Alum hydrox/simeth 30ml oral suspension PO PRN (02:45)
[2020-10-13] MEDS ORDERED: magnesium 2GM in 50ml NS 50 ML IV PRN (02:45)
[2020-10-13] MEDS ORDERED: normal saline 1000ml 1,000 ML IV SCH (02:45)
[2020-10-13] MEDS ORDERED: acetaminophen 650mg rectal suppository RC PRN (02:45)
[2020-10-13] MEDS ORDERED: potassium Cl 40MEQ/1/2NS 520ml 520 ML IV PRN ×2 (02:45)
[2020-10-13] MEDS ORDERED: HYDROmorphone inj. 0.5 MG/0.5 ML DISP.SYRIN IV PRN (02:45)
[2020-10-13] MEDS ORDERED: magnesium 4gm in 100ml NS 100 ML IV PRN (02:45)
[2020-10-13] MEDS ORDERED: ATRIN IH (03:50)
[2020-10-13 04:00] LABS: PARTIAL THROMBOPLASTIN TIME 25 SECONDS (22-32)
[2020-10-13] MEDS ORDERED: nitroGLYCERIN 0.4mg SUBLingual tab SL PRN (04:35)
[2020-10-13] MEDS ORDERED: K and/or MAG REPLACEMENT MC SCH (08:00)
[2020-10-13] MEDS ORDERED: cetirizine 10mg tablet PO SCH (08:00)
[2020-10-13] MEDS ORDERED: ALOGLIPTIN BENZOATE PO SCH (08:00)
[2020-10-13] MEDS ORDERED: atorvastatin 20mg tablet PO SCH (08:00)
[2020-10-13] MEDS ORDERED: metoprolol tartrate 12.5mg (1/2 tablet) PO SCH (08:00)
--- NOTE | 2020-10-13 08:05 | NUR ---
Pt unable to tolerate PO at this time. Will hold medications and reassess ability to swallow following EGD.
--- NOTE | 2020-10-13 08:26 | NUR ---
GI lab called for report. They will be down to get pt at approx 0900.
[2020-10-13] MEDS ORDERED: ipratropium 0.5 MG/2.5ML nebule IH SCH (09:00)
[2020-10-13] MEDS ORDERED: LIDOcaine Viscous 15ml cup ONE (09:12)
[2020-10-13] MEDS ORDERED: fentaNYL/PF 50MCG/1 ML 2ML syringe ONE (09:12)
[2020-10-13] MEDS ORDERED: MIDAZolam 1 MG/ML 5ML VIAL ONE (09:12)
[2020-10-13 09:35] VITALS: BP 159/69
[2020-10-13 09:52] VITALS: BP 112/48
[2020-10-13 10:02] VITALS: BP 103/44
[2020-10-13 10:12] VITALS: BP 111/51
[2020-10-13 10:22] VITALS: BP 114/51
[2020-10-13 10:29] VITALS: BP 132/76
[2020-10-13] MEDS ORDERED: PANT40TA54 PO (11:01)
[2020-10-13] MEDS ORDERED: lisinopril 20mg tablet PO SCH (18:00)
== END 2020-10-13 13:50 | disposition home or self-care (01) ==
LOC: ER 20:44 → ED HOLD 10-13 02:45
PROVIDERS: ADMIT Family Medicine; ATTEND Family Medicine
DX: T18.128A Food in esophagus causing other injury, initial encounter (principal); R13.10 Dysphagia, unspecified; E66.01 Morbid (severe) obesity due to excess calories; D72.829 Elevated white blood cell count, unspecified; E11.22 Type 2 diabetes mellitus with diabetic chronic kidney disease; I13.0 Hypertensive heart and chronic kidney disease with heart failure and stage 1 through stage 4 chronic kidney disease, or unspecified chronic kidney disease; N18.9 Chronic kidney disease, unspecified; I50.9 Heart failure, unspecified; I25.10 Atherosclerotic heart disease of native coronary artery without angina pectoris; I25.2 Old myocardial infarction; J44.9 Chronic obstructive pulmonary disease, unspecified; G47.33 Obstructive sleep apnea (adult) (pediatric); Z95.1 Presence of aortocoronary bypass graft; Z95.5 Presence of coronary angioplasty implant and graft; Z99.89 Dependence on other enabling machines and devices; Z79.82 Long term (current) use of aspirin; Z79.899 Other long term (current) drug therapy; Z88.8 Allergy status to other drugs, medicaments and biological substances
CPT/HCPCS: 36415; 43239; 71045; 80053; 85025; 85610; 85730; 93005; 94640; 94760; 96374; 96375; 99285; G0378; J1610; J2250; J2405; J3010; J7030; J7040; 88305; 99152; A4620

== ENCOUNTER 2022-01-16 17:46 | Emergency (ER) | payer MEDICARE, OTHER ==
[~2022-01-16] VITALS: Ht 177.8 cm; Wt 135.0 kg
[~2022-01-16 17:46] MED LIST changes: -CETI10TA18 PO; +CETI10TA19 PO; -DEC4T PO; +LOP25T PO; -METO25TA6 PO; +PANT40TA54 PO
[2022-01-16 17:48] VITALS: BP 132/70
[2022-01-16] MEDS ORDERED: CEPH-585 PO (19:17)
[2022-01-16] MEDS ORDERED: cephalexin 250mg capsule PO ONE (19:20)
== END 2022-01-16 19:54 | disposition home or self-care (01) ==
LOC: ER 17:46
DX: S80.811A Abrasion, right lower leg, initial encounter (principal); I11.0 Hypertensive heart disease with heart failure; E11.9 Type 2 diabetes mellitus without complications; Z79.899 Other long term (current) drug therapy; J44.9 Chronic obstructive pulmonary disease, unspecified; Z88.8 Allergy status to other drugs, medicaments and biological substances; Z88.6 Allergy status to analgesic agent; W26.8XXA Contact with other sharp object(s), not elsewhere classified, initial encounter; Y93.89 Activity, other specified; Y92.89 Other specified places as the place of occurrence of the external cause; Y99.8 Other external cause status
CPT/HCPCS: 99284